=== PATIENT | male | born 1975 | race Two or more races ===

== ENCOUNTER 2020-09-05 22:58 | Emergency (ER) | payer BC, OTHER ==
[~2020-09-05] VITALS: Ht 185.4 cm; Wt 83.9 kg
[2020-09-05 22:59] VITALS: BP 163/103
--- NOTE | 2020-09-05 23:15 | NUR ---
PT MEDICALLY CLEARED FOR DISCHARGE. LEFT WITH [facility]. Patient discharged to home in stable condition. Written and verbal after care instructions given. Patient verbalizes understanding of instruction.IV removed. Catheter intact and site benign. Pressure and 4x4 applied to site. No bleeding noted.(pt. name) ambulatory with a steady gait
== END 2020-09-05 23:44 | disposition home or self-care (01) ==
LOC: ER 22:59
DX: F19.10 Other psychoactive substance abuse, uncomplicated (principal); Z86.19 Personal history of other infectious and parasitic diseases

== ENCOUNTER 2022-07-09 15:46 | Emergency (ER) | payer BC ==
[~2022-07-09] VITALS: Ht 185.4 cm; Wt 93.0 kg
--- NOTE | 2022-07-09 16:04 | NUR ---
C/O BILAT FLANK PAIN X5 DAYS. DENIES DYSURIA AND HEMATURIA
--- NOTE | 2022-07-09 16:16 | NUR ---
URINE SAMPLE COLLECTED AND SENT TO LAB
[2022-07-09] MEDS ORDERED: CEPHALEXIN MONOHYDRATE 500 MG CAPSULE PO ONE ×2 (16:22→16:30)
[2022-07-09] MEDS ORDERED: SULFAMETH/TRIMETH 800/160 MG 1 UDTAB TABLET ONE (16:22)
[2022-07-09] MEDS ORDERED: SULFAMETH/TRIMETH 800/160 MG 1 UDTAB TABLET PO ONE (16:30)
[2022-07-09 16:43] LABS: BILIRUBIN,URINE NEGATIVE (NEGATIVE); COLOR,URINE YELLOW (YELLOW); LEUKOCYTE ESTERASE ,URINE NEGATIVE (NEGATIVE); NITRITE, URINE NEGATIVE (NEGATIVE); PH,URINE 6.5 (5.0-8.0); PROTEIN,URINE NEGATIVE (NEGATIVE); UGLUCOSE NEGATIVE (NEGATIVE); UROBILINOGEN,URINE 0.2 EU/dL (0.2)
--- NOTE | 2022-07-09 16:58 | NUR ---
BLOOD DRAWN AND SENT TO LAB
[2022-07-09 17:02] LABS: BASOPHILS # (AUTO) 0.1 K/uL (0.0-0.2); BASOPHILS % (AUTO) 0.5 % (0.0-2.0); EOSINOPHILS % (AUTO) 7.6 % (0.0-6.0); HEMATOCRIT 43 % (39-51); HEMOGLOBIN 14.3 g/dL (13.5-17.5); LYMPHOCYTES # (AUTO) 3.3 K/uL (0.8-4.8); LYMPHOCYTES % (AUTO) 25.6 % (20.0-44.0); MEAN CORPUSCULAR HGB CONC 33 g/dl (31.0-36.0); MEAN CORPUSCULAR VOLUME 89 fL (80-96); MONOCYTES # (AUTO) 1.4 K/uL (0.1-1.30); MONOCYTES % (AUTO) 10.5 % (2.0-12.0); NEUTROPHILS # (AUTO) 7.2 K/uL (1.8-8.9); NEUTROPHILS % (AUTO) 55.8 % (43.0-81.0); PLATELET COUNT (AUTO) 409 K/uL (150-450); RED BLOOD CELL COUNT(AUTO) 4.87 MIL/uL (4.5-6.0); WHITE BLOOD COUNT (AUTO) 12.9 K/uL (4.3-11.0)
[2022-07-09 17:16] LABS: BILIRUBIN,DIRECT 0.1 mg/dL (0.0-0.2); BILIRUBIN,TOTAL 0.3 mg/dL (0.2-1.0); CALCIUM, SERUM 9.4 mg/dL (8.5-10.1); CREATININE 0.8 mg/dL (0.6-1.3); POTASSIUM 5.2 mmol/L (3.5-5.1); TOTAL PROTEIN, SERUM 8.4 g/dL (6.4-8.2)
[2022-07-09] MEDS ORDERED: SULF1TAB48 PO (17:33)
[2022-07-09] MEDS ORDERED: CEPH500C2 PO (17:33)
--- NOTE | 2022-07-09 17:43 | NUR ---
Patient discharged to home in stable condition. Written and verbal after care instructions given. Patient verbalizes understanding of instruction.
[2022-07-09 17:46] VITALS: BP 128/77
== END 2022-07-09 17:47 | disposition home or self-care (01) ==
LOC: ER 15:47
DX: L03.114 Cellulitis of left upper limb (principal); F14.10 Cocaine abuse, uncomplicated; Z60.2 Problems related to living alone
CPT/HCPCS: 36415; 80048-TC; 80076-TC; 85025-TC

== ENCOUNTER 2023-04-18 12:27 | Emergency (ER) | payer BC ==
[~2023-04-18] VITALS: Ht 185.4 cm; Wt 104.3 kg
[~2023-04-18 12:27] MED LIST: CEPH500C2 PO; SULF1TAB48 PO
[2023-04-18] MEDS ORDERED: CEPH500C2 PO (13:26)
[2023-04-18] MEDS ORDERED: SULF1TAB48 PO (13:26)
[2023-04-18 13:46] VITALS: BP 138/87; TEMP 98; O2SAT 98
== END 2023-04-18 13:47 | disposition home or self-care (01) ==
LOC: ER 12:27
DX: L02.414 Cutaneous abscess of left upper limb (principal); L03.114 Cellulitis of left upper limb; F14.10 Cocaine abuse, uncomplicated; Z79.899 Other long term (current) drug therapy; Z60.2 Problems related to living alone
CPT/HCPCS: 99284; A6403